=== PATIENT | female | born 1995 | race Caucasian/White ===

== ENCOUNTER 2017-02-01 23:44 | Emergency (ER) | payer OTHER ==
[~2017-02-01] VITALS: Ht 170.2 cm; Wt 81.3 kg
[2017-02-01 23:49] VITALS: Ht 170.2 cm; Wt 81.3 kg
--- NOTE | 2017-02-02 01:03 | EMERGENCY ROOM VISIT NOTE ---
History Report prepared by Idalia: Jennyfer Araujo Under the Supervision of: Dr. Kameron Rose M.D. First contact with patient: 23:54 Chief Complaint: SORETHROAT Stated Complaint: THROAT ACHE,HEADACHE,EAR PAIN,CHILLS,FEVER History of Present Illness The patient is a 21 year old female who presents to the Emergency Room with complaints of a constant sore throat beginning a few days ago. The patient states that she has a history of Herpes and sores in her throat. She reports that one year ago she had a flare up and mouth infection and since then she has had 3 flare ups. She notes that she usually takes Valtrex and her symptoms are relieved. However, after getting Valtrex from [facility] yesterday, her symptoms have not been relieved. She complains of a 100.2 fever, cough, runny nose, headache, ear ache, achiness, and dizziness. The patient denies any chance of , abdominal pain, leg swelling nausea, and vomiting. She notes that she has a yeast infection in her armpits that she is putting cream on. Source of History: patient Onset: a few days ago Position: throat Quality: other (sore) Timing: constant Associated Symptoms: + fevers, + headache, + cough, No nausea, No vomiting, No abdominal pain Note: She complains of a runny nose, ear ache, achiness, and dizziness. Review of Systems See HPI for pertinent positives & negatives. A total of 10 systems reviewed and were otherwise negative. Past Medical & Surgical Medical Problems: (1) Herpes Old medical records were reviewed. Nurse's notes were reviewed and I agree with. Family History No pertinent family history stated. Social History Smoking Status: Never Smoker Drug Use: none Marital Status: in relationship Housing Status: lives with roommate Occupation Status: [employer] student Current/Historical Medications Scheduled Amoxicillin & Pot Clavulanate (Augmentin 875-125 mg), 875 MG PO BID Allergies Coded Allergies: No Known Allergies (Unverified , 02/02/17) Physical Exam Vital Signs Date Time Temp Pulse Resp B/P (MAP) Pulse Ox O2 Delivery O2 Flow Rate FiO2 02/01/17 23:49 98 Room Air 02/01/17 23:49 37.9 107 18 127/78 98 Room Air Physical Exam General: Non-ill appearing young female in no acute distress. Occasional dry cough. HEENT: Normal cephalic atraumatic. Pupils are equal round and reactive to light. Extraocular movements are intact. Oropharynx is pink with moist mucous membranes. Speaking and swallowing without difficulty floor of mouth is soft, no lesions seen. Small exudates on the right tonsil.No swelling of the mouth lips or tongue. Neck: Supple with a midline trachea. No meningeal signs or stiffness, no JVD or bruits. No Stridor. There is some mild lymphadenopathy in the neck. Chest: Clear to auscultation bilaterally. No wheezes or rhonchi. No increased work of breathing. Heart: regular rate and rhythm. Abdomen: Soft nontender, nondistended without rebound guarding or rigidity. Extremities: No cyanosis clubbing or edema. No calf tenderness or assymetry Spine/Back. Non tender to palpation. No CVA tenderness Skin: Good turgor without rashes. Neurologic exam: Cranial nerves two through 12 are intact. Motor and sensation are intact and symmetrical throughout. Medical Decision & Procedures Laboratory Results Test 02/02/17 00:10 Influenza Type A Antigen Neg for Influ A (NEG) Influenza Type B Antigen Neg for Influ B (NEG) Laboratory studies as stated above per my review. ED Course 2354: Past medical records reviewed. The patient was evaluated in room C1, and a complete history and physical examination were performed. 0102: I reevaluated the patient and updated her. She is doing well. 0109: Upon reevaluation, the patient is doing well. I discussed the results and treatment plan with the patient. She verbalized agreement of the treatment plan. The patient was discharged home. 0115: Augmentin 875mg homepack 1 homepack PO. Medical Decision Differentials include, but are not limited to; strep pharyngitis, viral illness , herpetic infection, dehydration, influenza. This patient comes in as described above. She has a sore throat she also has flulike symptoms. She's had a cough fever and body aches. She have a history of having herpetic infections in her mouth. I do not see any lesions at this point. She was started on Valtrex day or so ago is not better. She has no evidence suggest peritonsillar abscess or Mckay's angina. She has just a small non-exudates on the right she does have some mild lymphadenopathy. She has nothing just meningitis she does have sinus type symptoms. Her flu swab was negative. Rapid strep was negative as well. I will add antibiotic coverage with Augmentin 875 mg twice a day to cover sinusitis/pharyngitis. She should rest and drink plenty of fluids. Use ibuprofen for pain and return if: increasing pain, not tolerating fluids, worsening of symptoms, any new problems or concerns. Medication Reconcilliation Current Medication List: was personally reviewed by me Blood Pressure Screening Patient's blood pressure: Normal blood pressure Blood pressure disposition: Did not require urgent referral Impression Primary Impression: Pharyngitis Additional Impression: Sinusitis Scribe Attestation The scribe's documentation has been prepared under my direction and personally reviewed by me in its entirety. I confirm that the note above accurately reflects all work, treatment, procedures, and medical decision making performed by me. Departure Information Dispostion Home / Self-Care Prescriptions Amoxicillin & Pot Clavulanate (Augmentin 875-125 mg) 1 Tab Tab 875 MG PO BID for 7 Days, #14 TAB Prov: Kameron Rose M.D. 02/02/17 Referrals No Doctor, Assigned (PCP) Forms HOME CARE DOCUMENTATION FORM, IMPORTANT VISIT INFORMATION Patient Instructions My [facility] Additional Instructions Rest. Drink plenty of fluids. Continue her Valtrex Also add Augmentin 875 mg twice a day for 7 days-antibiotic Use ibuprofen 400 mg every 6 hours, take with food Return if: Increasing pain, not tolerating fluids, worsening symptoms, any new problems or concerns Follow-up with the [facility] on Saturday for recheck if not 100% better or return here over the weekend if symptoms worsen Problem Qualifiers
[2017-02-02] MEDS ORDERED: AMOX875T PO (01:07)
[2017-02-02] MEDS ORDERED: AMOXICIL/CLAVU 875MG HOME PACK PO ONE (01:15)
[2017-02-02 01:18] VITALS: BP 125/80; PULSE 75; TEMP 37; O2SAT 98
== END 2017-02-02 01:20 | disposition home or self-care (01) ==
LOC: C.EDB 23:46 → C.EDC 02-02 01:20
DX: J02.9 Acute pharyngitis, unspecified (principal); J32.9 Chronic sinusitis, unspecified; Z86.19 Personal history of other infectious and parasitic diseases